=== PATIENT | male | born 1985 | race Caucasian/White ===

== ENCOUNTER 2020-07-23 12:47 | Emergency (ER) | payer BC ==
[~2020-07-23] VITALS: Ht 175.3 cm; Wt 83.0 kg
[2020-07-23 13:14] VITALS: BP_SYST 123
[2020-07-23 14:41] VITALS: BP_SYST 125
== END 2020-07-23 14:42 | disposition home or self-care (01) ==
LOC: SED 12:47
DX: M54.6 Pain in thoracic spine (principal)
CPT/HCPCS: 72072-TC; 81002; 99283

== ENCOUNTER 2022-11-08 10:28 | Emergency (ER) | payer BC ==
[~2022-11-08] VITALS: Ht 175.3 cm; Wt 90.7 kg
[2022-11-08 10:34] VITALS: BP_SYST 159
[2022-11-08] MEDS ORDERED: KETOROLAC TROMETHAMINE 60 MG/2 ML VIAL IM ONE (12:00)
[2022-11-08] MEDS ORDERED: IBUP-1971 PO (12:17)
[2022-11-08 12:37] VITALS: BP_SYST 145
== END 2022-11-08 12:37 | disposition home or self-care (01) ==
LOC: SED 10:28
DX: R07.89 Other chest pain (principal); M54.6 Pain in thoracic spine; Z79.899 Other long term (current) drug therapy
CPT/HCPCS: 99283; 93005; 96372; J1885